=== PATIENT | female | born 1975 | race Caucasian/White ===

== ENCOUNTER 2019-01-14 01:07 | Emergency (ER) | payer OTHER ==
[~2019-01-14] VITALS: Ht 165.1 cm; Wt 94.3 kg
[2019-01-14 01:17] VITALS: Ht 165.1 cm; Wt 94.3 kg
[2019-01-14 04:08] LABS: microscopic required? YES; urine erythrocyte 1+ (NEGATIVE)
[2019-01-14 06:17] VITALS: BP 133/70
== END 2019-01-14 06:17 | disposition home or self-care (01) ==
LOC: ED 01:07
PROVIDERS: Emergency Medicine
DX: G43.909 Migraine, unspecified, not intractable, without status migrainosus (principal); N39.0 Urinary tract infection, site not specified
CPT/HCPCS: 87804; J0696; J0780; J1885; J7030

== ENCOUNTER 2020-09-19 00:44 | Emergency (ER) | payer OTHER ==
[~2020-09-19] VITALS: Ht 167.6 cm; Wt 81.6 kg
[2020-09-19 00:47] VITALS: BP 128/91; Ht 167.6 cm; Wt 81.6 kg
== END 2020-09-19 02:24 | disposition left against medical advice (07) ==
LOC: ED 00:44
DX: J02.9 Acute pharyngitis, unspecified (principal); R00.0 Tachycardia, unspecified; G43.909 Migraine, unspecified, not intractable, without status migrainosus; L98.9 Disorder of the skin and subcutaneous tissue, unspecified; Z20.828 Contact with and (suspected) exposure to other viral communicable diseases
CPT/HCPCS: U0003